=== PATIENT | male | born 1995 | race African-American/Black ===

== ENCOUNTER 2017-07-01 08:43 | Emergency (ER) | payer SELFPAY ==
[~2017-07-01] VITALS: Ht 170.2 cm; Wt 70.0 kg
[2017-07-01 08:54] VITALS: BP 145/83; PULSE 68; RESP 15; TEMP 98.9; O2SAT 99
== END 2017-07-01 10:43 | disposition left against medical advice (07) ==
LOC: NED 08:43
DX: R10.9 Unspecified abdominal pain (principal)
CPT/HCPCS: 99281

== ENCOUNTER 2018-01-21 18:23 | Inpatient (IN) ==
[2018-01-21 22:05] LABS: Baso % (Auto) 0.7 % (0.0-2.0); Eos # (Auto) 0.1 th/mm3 (0.0-0.4); Eos % (Auto) 2.1 % (0.0-4.0); Hematocrit 45.2 % (39.0-51.0); Hemoglobin 15.1 gm/dL (13.0-17.0); Lymph # (Auto) 2.3 th/mm3 (1.0-4.8); Lymph % (Auto) 34.6 % (9.0-44.0); Mean Corpuscular HGB Conc 33.3 % (32.0-36.0); Mean Corpuscular Hemoglobin 33.2 pg (27.0-34.0); Mean Corpuscular Volume 99.7 fL (80.0-100.0); Mono # (Auto) 0.6 th/mm3 (0.0-0.9); Mono % (Auto) 9.2 % (0.0-8.0); Neut # (Auto) 3.5 th/mm3 (1.8-7.7); Neut % (Auto) 53.4 % (16.0-70.0); Platelet Count 160 th/mm3 (150-450); Red Blood Count 4.54 mil/mm3 (4.50-5.90); White Blood Count 6.5 th/mm3 (4.0-11.0)
[2018-01-21 22:08] LABS: Amphetamine Screen,Urine Neg (Neg); Barbiturate Screen,Urine Neg (Neg); Cannabinoid Screen,Urine Pos (Neg); Cocaine Screen,Urine Neg (Neg)
[2018-01-21 22:14] LABS: Opiate Screen,Urine Neg (Neg)
[2018-01-21 22:14] LABS: Anion Gap 4 meq/L (5-15)
--- NOTE | 2018-01-21 22:23 | ED ---
HPI General Chief Complaint: Psychiatric Symptoms Stated Complaint: psych eval Time Seen by Provider: 01/21/18 21:29 Source: patient Mode of arrival: ambulatory Limitations: no limitations History of Present Illness HPI Narrative: Patient states that he has been stressed out about school recently and has been contemplating suicide for the past week. Has a old prescription for pain medications from a previous surgery that he is planning on taking. States that if the medication was not working he was going to jump off a bridge. Patient has never been medicated for depression in the past. MD complaint: Reports suicidal ideation and feels depressed Relieving factors: none Exacerbating factors: none Associated psychiatric symptoms: Reports depression and suicidal ideation Associated symptoms: Reports denies other symptoms Treatments prior to arrival: Reports none If self harm: has plan Related Data Home Medications Medication Instructions Recorded Confirmed No Known Home Medications 01/21/18 01/21/18 Allergies Allergy/AdvReac Type Severity Reaction Status Date / Time No Known Allergies Allergy Unverified 07/01/17 08:54 Review of Systems ROS: all other systems reviewed are negative [facility] Medical History Medical History Patient denies medical problems (Acute) Surgical History Surgical History History of appendectomy (Acute) Social History Social History Substance History: Active Abuse Second Hand Smoke Exposure: No Smoking Status: Never smoker How Often Do You Have a Drink Containing Alcohol: Never Recent Travel in [facility] within the Last 8 Weeks: No Recent Out of Country Travel within the Last 8 Weeks: No Substance Abuse Detail Marijuana: Substance Use Status: Active Route Used Substance Abuse: Inhalation Reason for Use: Get High Immunization History Tetanus Immunization: Unsure Exam Const General: cooperative, healthy appearing and anxious Nutritional Appearance: well nourished Orientation: alert, awake and oriented x3 HENMT Head: normocephalic and atraumatic Nose: no nasal discharge and no epistaxis Mouth: moist mucous membranes Eyes Conjunctivae: conjunctivae normal Sclera: normal sclerae Pupils: PERRL Neck Neck: trachea midline and no JVD Resp Effort & Inspection: no use of accessory muscles Auscultation: clear to auscultation bilaterally, no crackles, no rales and no wheezes Cardio Rate: regular rate Rhythm: regular rhythm Heart Sounds: no murmurs GI Inspection: non-distended Palpation: soft, no hepatosplenomegaly and nontender Skin General: no rashes or lesions noted and dry skin (warm) Trauma: no lacerations or abrasions Wounds: no wounds Neuro General: alert and awake Cranial Nerves: other Speech: speech normal Motor: no movement abnormalities noted Extrem General: normal to inspection, no clubbing, no cyanosis and no edema Psych Appearance: grossly normal and well kempt Speech and Movement: speech and movement normal Mood: congruent mood Affect: normal affect Judgment: judgment good Course Initial Documented Vital Signs Temperature 99.1 F 01/21/18 18:36 Pulse Rate 60 01/21/18 18:36 Respiratory Rate 20 01/21/18 18:36 Blood Pressure 135/93 H 01/21/18 18:36 Pulse Oximetry 99 01/21/18 18:36 Last Documented Vital Signs Temperature 97.6 F 01/24/18 05:07 Pulse Rate 48 L 01/24/18 05:07 Respiratory Rate 16 01/24/18 05:07 Blood Pressure 120/65 01/24/18 05:07 Pulse Oximetry 100 01/24/18 05:07 Medical Decision Making MDM Narrative Medical decision making narrative: Patient states that he has been depressed and suicidal for the last week. Has a plan to take an entire bottle of pain medication or jump off a bridge. Told his family who now want him evaluated by a psychiatrist. [facility] Patient will get labs and toxicology screen Patient is resting comfortably in bed. Labs are negative and toxicology came back with positive THC Patient medically cleared at 0007 patient seen by psychiatric nurse who thinks patient needs to be admitted into hospital after evaluation by psychiatrist. If patient tries to leave AMA we will ruiz act patient Medical Screen Exam Complete: Yes Emergency Medical Condition: Yes Differential Diagnosis Differential Diagnosis: Suicidal ideation, depression, manic bipolar, anxiety, malingering Lab Data Lab results reviewed: Yes I reviewed the patient's lab results. Result diagrams: 01/21/18 21:36 01/23/18 09:25 Lab Results 01/21/18 01/21/18 01/21/18 Range/Units 21:30 21:36 21:36 WBC 6.5 (4.0-11.0) th/mm3 RBC 4.54 (4.50-5.90) mil/mm3 Hgb 15.1 (13.0-17.0) gm/dL Hct 45.2 (39.0-51.0) % MCV 99.7 (80.0-100.0) fL MCH 33.2 (27.0-34.0) pg MCHC 33.3 (32.0-36.0) % RDW 13.0 (11.6-17.2) % Plt Count 160 (150-450) th/mm3 MPV 9.0 (7.0-11.0) fL Neut % (Auto) 53.4 (16.0-70.0) % Lymph % (Auto) 34.6 (9.0-44.0) % [place] % (Auto) 9.2 H (0.0-8.0) % Eos % (Auto) 2.1 (0.0-4.0) % Baso % (Auto) 0.7 (0.0-2.0) % Neut # (Auto) 3.5 (1.8-7.7) th/mm3 Lymph # (Auto) 2.3 (1.0-4.8) th/mm3 [place] # (Auto) 0.6 (0.0-0.9) th/mm3 Eos # (Auto) 0.1 (0.0-0.4) th/mm3 Baso # (Auto) 0.0 (0.0-0.2) th/mm3 WBC Differential . Differential Comment Auto diff final Sodium 141 (136-145) meq/L Potassium 4.0 (3.5-5.1) meq/L Chloride 107 (98-107) meq/L Carbon Dioxide 30.1 (21.0-32.0) meq/L Anion Gap 4 L (5-15) meq/L BUN 11 (7-18) mg/dL Creatinine 1.10 (0.60-1.30) mg/dL Estimated GFR Greater than 89 (>89) mL/min Random Glucose 85 (74-106) mg/dL Hemoglobin A1c (4.3-6.0) % Calcium 9.4 (8.5-10.1) mg/dL Total Bilirubin 1.5 H (0.2-1.0) mg/dL AST 18 (15-39) U/L ALT 16 (9-52) U/L Alkaline Phosphatase 60 (45-117) U/L Total Protein 9.0 H (6.4-8.2) g/dL Albumin 4.9 (3.4-5.0) g/dL Triglycerides (42-150) mg/dL Cholesterol (120-200) mg/dL LDL Cholesterol, Calc (0-99) mg/dL HDL Cholesterol (40.0-60.0) mg/dL Cholesterol/HDL Ratio Ratio Salicylates (2.8-20.0) mg/dL Urine Opiates Screen Neg (Neg) Acetaminophen Less than 2.0 L (10.0-30.0) mcg/mL Ur Barbiturates Screen Neg (Neg) Ur Amphetamines Screen Neg (Neg) U Benzodiazepines Scrn Neg (Neg) Urine Cocaine Screen Neg (Neg) U Cannabinoids Screen Pos H (Neg) Serum Alcohol Less than 3 (0-5) mg/dL 01/21/18 01/23/18 01/23/18 Range/Units 21:36 09:25 09:25 WBC (4.0-11.0) th/mm3 RBC (4.50-5.90) mil/mm3 Hgb (13.0-17.0) gm/dL Hct (39.0-51.0) % MCV (80.0-100.0) fL MCH (27.0-34.0) pg MCHC (32.0-36.0) % RDW (11.6-17.2) % Plt Count (150-450) th/mm3 MPV (7.0-11.0) fL Neut % (Auto) (16.0-70.0) % Lymph % (Auto) (9.0-44.0) % [place] % (Auto) (0.0-8.0) % Eos % (Auto) (0.0-4.0) % Baso % (Auto) (0.0-2.0) % Neut # (Auto) (1.8-7.7) th/mm3 Lymph # (Auto) (1.0-4.8) th/mm3 [place] # (Auto) (0.0-0.9) th/mm3 Eos # (Auto) (0.0-0.4) th/mm3 Baso # (Auto) (0.0-0.2) th/mm3 WBC Differential Differential Comment Sodium 139 (136-145) meq/L Potassium 4.0 (3.5-5.1) meq/L Chloride 103 (98-107) meq/L Carbon Dioxide 30.7 (21.0-32.0) meq/L Anion Gap 5 (5-15) meq/L BUN 11 (7-18) mg/dL Creatinine 1.19 (0.60-1.30) mg/dL Estimated GFR Greater than 89 (>89) mL/min Random Glucose 62 L (74-106) mg/dL Hemoglobin A1c 5.4 (4.3-6.0) % Calcium 9.4 (8.5-10.1) mg/dL Total Bilirubin (0.2-1.0) mg/dL AST (15-39) U/L ALT (9-52) U/L Alkaline Phosphatase (45-117) U/L Total Protein (6.4-8.2) g/dL Albumin (3.4-5.0) g/dL Triglycerides 71 (42-150) mg/dL Cholesterol 130 (120-200) mg/dL LDL Cholesterol, Calc 63 (0-99) mg/dL HDL Cholesterol 52.6 (40.0-60.0) mg/dL Cholesterol/HDL Ratio 2.47 Ratio Salicylates Less than 1.7 L (2.8-20.0) mg/dL Urine Opiates Screen (Neg) Acetaminophen (10.0-30.0) mcg/mL Ur Barbiturates Screen (Neg) Ur Amphetamines Screen (Neg) U Benzodiazepines Scrn (Neg) Urine Cocaine Screen (Neg) U Cannabinoids Screen (Neg) Serum Alcohol (0-5) mg/dL Discharge Plan Discharge Disposition Patient Disposition: 30 Still Patient Discharge Condition Condition: Stable Discharge Details Diagnosis: Suicidal ideation Physicians Team ED Provider: Marium Machado ED Midlevel Provider: Emily Anand Primary Care Provider: Primary Care Dominga Melgoza Attending Provider: Arpit Vázquez Status ED Status: Left Department Discharge Information Discharge Date/Time: 01/22/18 11:45
[2018-01-21 22:30] LABS: Alanine Aminotransferase 16 U/L (9-52); Albumin 4.9 g/dL (3.4-5.0); Alkaline Phosphatase 60 U/L (45-117); Aspartate Aminotransferase 18 U/L (15-39); Blood Urea Nitrogen 11 mg/dL (7-18); Calcium 9.4 mg/dL (8.5-10.1); Carbon Dioxide 30.1 meq/L (21.0-32.0); Chloride 107 meq/L (98-107); Glomerular Filtration Rate Greater Than 89 mL/min (>89); Glucose,Random 85 mg/dL (74-106); Sodium 141 meq/L (136-145)
[2018-01-22] MEDS ORDERED: Aluminum/Magnesium/Simethacone Susp 30 ML UDC PO PRN (10:33)
[2018-01-22] MEDS ORDERED: Bisacodyl 10 MG Supp RECTAL PRN (10:33)
--- NOTE | 2018-01-22 11:02 | P.HPPSY ---
Provisional Diagnosis Admission Date: January 21, 2018 18:23 [facility] I.: Adjustment disorder with depressed mood, R/O major depressive disorder, R/O substance-induced mood disorder Competence Certification of Person's Competence To Provide Express and Informed Consent I have personally examined Johnny Hoskins JR, a person being served at [facility] on, January 22, 2018 1049. Express and informed consent means consent voluntarily given in writing, by a competent person, after sufficient explanation and disclosure of the subject matter involved to enable the person to make a knowing and willful decision without any element of force, fraud, deceit, duress, or other form of constraint or coercion. This person is 18 years of age or older, is not now known to be incompetent to consent to treatment with a guardian advocate, and does not have a health care surrogate or proxy currently making medical treatment decisions. I have found this person to be one of the following: [x] Competent to provide express and informed consent, as defined above, for voluntary admission to this facility and is competent to provide express and informed consent for treatment. He/she has the consistent capacity to make well reasoned, willful, and knowing decisions concerning his or her medical or mental health treatment. The person fully and consistently understands the purpose of the admission for examination/placement and is fully capable of personally exercising all rights assured [place] Incompetent to provide express and informed consent to voluntary admission, and this is incompetent to provide express and informed consent to treatment. The person must be transferred to involuntary status and a petition for a guardian advocate filed with the Circuit Court. [] Refusing to provide express and informed consent to voluntary admission but is competent to provide express and informed consent for treatment. The person must be discharged or transferred to involuntary status. Form shall be completed within 24 hours of a person's arrival at the receiving facility and filed in the clinical record of each person: 1. Admitted on a voluntary basis 2. Permitted to provide express and informed consent to his/her own treatment 3. Allowed to transfer from involuntary to voluntary status 4. Prior to permitting a person to consent to his or her own treatment after having been previously found incompetent to consent to treatment. History of Present Illness Capacity: Has capacity History of Present Illness: The patient is a 22-year-old -[place] man, domiciled with his parents in [place], college student, he has a girlfriend, employed, without no previous psychiatric hospitalizations, cannabis use disorder, no previous suicide attempts, no significant medical history, who was brought voluntarily by his parents to have a psychiatric evaluation. He states that he has been stressed out about school recently and has been contemplating suicide for the past week. Has a old prescription for pain medications from a previous surgery that he is planning on taking. States that if the medication was not working he was going to jump off a bridge. Patient has never been medicated for depression in the past. He reports that he cannot understand the reason he feels depressed. He says that he feels now, but in the morning he can is starting feeling that everything is terrible around him, the bad news really gets through him, he has started seeing the world in a very pessimistic way and he cannot control the feelings of wanting to and disappear. Yesterday, he says, he was doing absolutely fine, he had no recent to be depressed, but all of the sudden he started feeling desperate, hopeless, helpless, worthless, with a strong need to commit suicide. The patient denies visual and auditory hallucinations. During my evaluation the patient is logical, coherent and relevant. There is no elicited paranoia, delusions of reference, loosening of associations, yolanda. The patient is fully oriented x3, without no fluctuation of consciousness, no attention deficit, no gross cognitive impairment present. During his stay in the ER he has been usually calm, cooperative, no agitation, no aggressive behavior reported. However, as per nurse report, the patient yesterday was asked to the nurse in charge if it was okay to hear voices inside his head., Even though he denies this today. Collateral information from his stepmotherOhma, , was obtained. She adds that yesterday patient's family became very concerned when he started to cry unconsolably for no apparent reason. She says that this is out of character for him. Nobody could really understood what was happening, not even his girlfriend, but he was saying over and over that he wanted to commit suicide and his plan was to overdose with pain medication, and if pain medication did not work he would jump off a bridge. She denies any kind of odd behavior lately, isolation, self neglecting behavior. 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, Review of Systems All other systems reviewed negative except as stated in HPI Psychiatric: Reports hopelessness, Reports irritability PMFSH - History History Provided By: Patient - Medical History Medical History: Medical History (Last Reviewed 01/22/18 @ 00:01 by Emily Anand) Patient denies medical problems - Surgical History Surgical History: Surgical History (Last Reviewed 01/22/18 @ 00:01 by Emily Anand) History of appendectomy - Tobacco History Second Hand Smoke Exposure: Yes Smoking Status: Never smoker - Alcohol History How Often Do You Have a Drink Containing Alcohol: Never - Substance Use History Substance History: Active Abuse - Substance Use Type Marijuana Status: Active Route Used: Inhalation Reason for Use: Get High - Travel History Recent Travel in the [place] Within the Last 8 Weeks: No Recent Travel Out of the Country Within the Last 8 Weeks: No - Immunization History Tetanus Immunization: Unsure Medications and Allergies Active Medications: Active Medications Al Hydrox/Mg Hydrox/Simethicone (Mag-Al Plus Susp Liq) 30 ml PO Q6H PRN PRN Reason: DYSPEPSIA Al Hydroxide/Mg Hydroxide (Milk Of Magnesia Liq) 30 ml PO Q12H PRN PRN Reason: Mild Constipation Bisacodyl (Dulcolax Supp) 10 mg RECTAL DAILY PRN PRN Reason: SEVERE CONSITIPATION Lactulose (Lactulose Liq) 30 ml PO DAILY PRN PRN Reason: SEVERE CONSITIPATION Senna/Docusate Sodium (Elizabeth-Colace) 1 tab PO BID ARIN Sennosides (Senokot) 17.2 mg PO Q12H PRN PRN Reason: Moderate Constipation Allergies Allergy/AdvReac Type Severity Reaction Status Date / Time No Known Allergies Allergy Unverified 07/01/17 08:54 Home Medications Medication Instructions Recorded Confirmed Type No Known Home Medications 01/21/18 01/21/18 History Results - Labs CBC & Chem 7: 01/21/18 21:36 01/21/18 21:36 Labs: Laboratory Results - last 24 hr 01/21/18 01/21/18 01/21/18 21:30 21:36 21:36 WBC 6.5 RBC 4.54 Hgb 15.1 Hct 45.2 MCV 99.7 MCH 33.2 MCHC 33.3 RDW 13.0 Plt Count 160 MPV 9.0 Neut % (Auto) 53.4 Lymph % (Auto) 34.6 Harrison % (Auto) 9.2 H Eos % (Auto) 2.1 Baso % (Auto) 0.7 Neut # (Auto) 3.5 Lymph # (Auto) 2.3 Harrison # (Auto) 0.6 Eos # (Auto) 0.1 Baso # (Auto) 0.0 WBC Differential . Differential Comment Auto diff final Sodium 141 Potassium 4.0 Chloride 107 Carbon Dioxide 30.1 Anion Gap 4 L BUN 11 Creatinine 1.10 Estimated GFR Greater than 89 Random Glucose 85 Calcium 9.4 Total Bilirubin 1.5 H AST 18 ALT 16 Alkaline Phosphatase 60 Total Protein 9.0 H Albumin 4.9 Salicylates Urine Opiates Screen Neg Acetaminophen Less than 2.0 L Ur Barbiturates Screen Neg Ur Amphetamines Screen Neg U Benzodiazepines Scrn Neg Urine Cocaine Screen Neg U Cannabinoids Screen Pos H Serum Alcohol Less than 3 01/21/18 21:36 WBC RBC Hgb Hct MCV MCH MCHC RDW Plt Count MPV Neut % (Auto) Lymph % (Auto) Harrison % (Auto) Eos % (Auto) Baso % (Auto) Neut # (Auto) Lymph # (Auto) Harrison # (Auto) Eos # (Auto) Baso # (Auto) WBC Differential Differential Comment Sodium Potassium Chloride Carbon Dioxide Anion Gap BUN Creatinine Estimated GFR Random Glucose Calcium Total Bilirubin AST ALT Alkaline Phosphatase Total Protein Albumin Salicylates Less than 1.7 L Urine Opiates Screen Acetaminophen Ur Barbiturates Screen Ur Amphetamines Screen U Benzodiazepines Scrn Urine Cocaine Screen U Cannabinoids Screen Serum Alcohol Exam Vital signs: Vital Signs 01/21/18 18:36 01/22/18 03:00 Temperature 99.1 F Pulse Rate 60 55 L Respiratory Rate 20 16 Blood Pressure 135/93 H 124/64 Pulse Oximetry 99 99 Intake & Output 01/21/18 01/22/18 01/22/18 18:59 06:59 18:59 Weight 65.771 kg Narrative: No tremors, no EPS, no withdrawal, no psychomotor agitation or retardation, no catatonia - Constitutional no acute distress - Routine HEENT Exam Head: Present: normocephalic, atraumatic Eye: Present: EOMI, PERRL ENT: Present: mucous membranes moist Mental Status Examination Appearance: Appropriate Consciousness: Alert Orientation: x4 Motor Activity: Normal gait Speech: Unremarkable Language: Adequate Fund of Knowledge: Adequate Attention and Concentration: Adequate Memory: Unremarkable Mood: Appropriate Affect: Appropriate Thought Process & Associations: Intact Thought Content: Appropriate Hallucination Type: None Delusion Type: None Suicidal Ideation: Yes Suicidal Plan: No Suicidal Intention: No Homicidal Ideation: No Homicidal Plan: No Homicidal Intention: No Insight: Fair Judgment: Impulsive Assessment and Plan - Assessment (1) Adjustment disorder with depressed mood Code(s): F43.21 - Adjustment disorder with depressed mood Status: Acute - Plan Plan: On my psychiatric evaluation today I find a patient that is calm, cooperative, logical, coherent and relevant. The patient reports that yesterday he felt all of the sudden very depressed and was contemplated to commit suicide by overdosing or by jumping off a bridge, he is denying to feel like that at this moment. He reports that yesterday without no recent he felt very hopeless, helpless, worthless, and with that continues persistent suicidal ideation with a plan of taking his meds recently prescribed for appendicitis "and, if this did not work I would jump off a bridge". Patient says that he was very determined to do this, and this was the reason he is poor with stepmother and girlfriend. He cannot identify any acute stressor at this moment. His stepmother and girlfriend, both, clarified that they were concerned about this patient's behavior, because he was crying inconsolably and this is out of character from him. During my evaluation the patient is at times distant and superficial, but I cannot perceive any psychotic symptoms. However, yesterday, as per nursing charge, the patient was asking if he was okay to hear voices in his head, but today he denies this. At this point is quite unclear to me if the etiology of presentation is secondary to an adjustment kind of emotion, and mood disorder or even to psychosis. The patient is going to be admitted voluntarily for longitudinal observation and to potentially start psychotropics. At this point I am not starting any medication, I am just observing. But, Prozac 10 mg and Abilify 5 mg could be a possibility. Transfer to 2600. Case discussed with nursing staff. Justification for Continued Inpatient Stay: To be admitted in psychiatry
[2018-01-22] MEDS: Senna/Docusate Sodium 8.6/50 MG Tablet PO SCH (20:25)
[2018-01-23] MEDS: Senna/Docusate Sodium 8.6/50 MG Tablet PO SCH ×2 (08:23→20:08)
[2018-01-23 11:07] LABS: Anion Gap 5 meq/L (5-15); Blood Urea Nitrogen 11 mg/dL (7-18); Calcium 9.4 mg/dL (8.5-10.1); Carbon Dioxide 30.7 meq/L (21.0-32.0); Chloride 103 meq/L (98-107); Glomerular Filtration Rate Greater Than 89 mL/min (>89); Glucose,Random 62 mg/dL (74-106); Sodium 139 meq/L (136-145)
[2018-01-23 11:09] LABS: Cholesterol 130 mg/dL (120-200); Triglycerides 71 mg/dL (42-150)
[2018-01-23 11:11] LABS: Chol/HDL Ratio 2.47 Ratio; HDL Cholesterol 52.6 mg/dL (40.0-60.0); LDL Cholesterol,Calculated 63 mg/dL (0-99)
--- NOTE | 2018-01-23 11:42 | P.PNPSY ---
Subjective Remarks: Reviewed electronic medical record and discussed patient with staff. Patient in common area and met with him in the hallway. He states that he is a college student and under alot of stress. He states he is not suicidal and feeling alot better. He has a supportive significant other. I shared with him that [facility] has a counselor and that he can request counseling through his [facility]. He is eager to return to school. Review of Systems All other systems reviewed negative except as stated in HPI Mental Status Examination Appearance: Appropriate Consciousness: Alert Orientation: x4 Motor Activity: Normal gait Speech: Unremarkable Language: Adequate Fund of Knowledge: Adequate Attention and Concentration: Adequate Memory: Unremarkable Mood: Appropriate Affect: Appropriate Thought Process & Associations: Intact Thought Content: Appropriate Hallucination Type: None Delusion Type: None Suicidal Ideation: No Suicidal Plan: No Suicidal Intention: No Homicidal Ideation: No Homicidal Plan: No Homicidal Intention: No Insight: Adequate Judgment: Adequate Assessment and Plan - Assessment (1) Adjustment disorder with depressed mood Code(s): F43.21 - Adjustment disorder with depressed mood Status: Acute - Plan Plan: Continue current treatment plan. Justification for Continued Inpatient Stay: Moving patient to a less restrictive environment may result in his decompensation.
[2018-01-23 13:03] LABS: Hemoglobin A1c 5.4 % (4.3-6.0)
--- NOTE | 2018-01-24 13:55 | P.DSPSY ---
Psychiatry Discharge Summary Inpatient Psychiatric care?: Yes Advance Directives: No Mental Health Advance Directive: No Health Care Proxy: No - Admission Admission Date: January 22, 2018 10:44 - Admission Diagnosis (1) Adjustment disorder with depressed mood Code(s): F43.21 - Adjustment disorder with depressed mood Brief History: The patient is a 22-year-old -[place] man, domiciled with his parents in [place], college student, he has a girlfriend, employed, without no previous psychiatric hospitalizations, cannabis use disorder, no previous suicide attempts, no significant medical history, who was brought voluntarily by his parents to have a psychiatric evaluation. He states that he has been stressed out about school recently and has been contemplating suicide for the past week. Has a old prescription for pain medications from a previous surgery that he is planning on taking. States that if the medication was not working he was going to jump off a bridge. Patient has never been medicated for depression in the past. He reports that he cannot understand the reason he feels depressed. He says that he feels now, but in the morning he can is starting feeling that everything is terrible around him, the bad news really gets through him, he has started seeing the world in a very pessimistic way and he cannot control the feelings of wanting to and disappear. Yesterday, he says, he was doing absolutely fine, he had no recent to be depressed, but all of the sudden he started feeling desperate, hopeless, helpless, worthless, with a strong need to commit suicide. The patient denies visual and auditory hallucinations. During my evaluation the patient is logical, coherent and relevant. There is no elicited paranoia, delusions of reference, loosening of associations, yolanda. The patient is fully oriented x3, without no fluctuation of consciousness, no attention deficit, no gross cognitive impairment present. During his stay in the ER he has been usually calm, cooperative, no agitation, no aggressive behavior reported. However, as per nurse report, the patient yesterday was asked to the nurse in charge if it was okay to hear voices inside his head., Even though he denies this today. Collateral information from his stepmotherOhma, , was obtained. She adds that yesterday patient's family became very concerned when he started to cry unconsolably for no apparent reason. She says that this is out of character for him. Nobody could really understood what was happening, not even his girlfriend, but he was saying over and over that he wanted to commit suicide and his plan was to overdose with pain medication, and if pain medication did not work he would jump off a bridge. She denies any kind of odd behavior lately, isolation, self neglecting behavior. 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 He has been having stress with his classes. He also gives a long somewhat convoluted history of depressive issues going back a number of years. There is a family history of mental health issues patient stating that his mother and sister are bipolar. He acknowledges a regular use of marijuana feels that it helps him with his anxiety at times but also makes him somewhat paranoid. He denies suicidality homicidality voices or visions. Denies other drug use. He is able contract to do no harm. He does state that he is adamantly opposed to medications at this time. There is a vague inference that he was looking for to prescribe him the green card for marijuana. I respectfully declined to support that. In any event at this time patient no longer meets criteria for inpatient psychiatric stay. I feel he may benefit from some routine regular counseling perhaps through [facility]. Thus patient to be discharged today to himself with no Rx by me strong referral to [facility] for counseling, absolute abstinence, referred to [facility] for treatment related to marijuana use - Discharge Discharge Date: 01/24/18 - Discharge Diagnosis (1) Adjustment disorder with depressed mood Code(s): F43.21 - Adjustment disorder with depressed mood Status: Acute Discharge Disposition: Home - Discharge Instructions Discharge Diet: Regular Diet Activities You Can Perform: Regular- No Restrictions - Discharge Time > 30 minutes Mental Status Examination Appearance: Appropriate Consciousness: Alert Orientation: x4 Motor Activity: Normal gait Speech: Unremarkable Language: Adequate Fund of Knowledge: Adequate Attention and Concentration: Adequate Memory: Unremarkable Mood: Appropriate Affect: Appropriate Thought Process & Associations: Intact Thought Content: Appropriate Hallucination Type: None Delusion Type: None Suicidal Ideation: No Suicidal Plan: No Suicidal Intention: No Homicidal Ideation: No Homicidal Plan: No Homicidal Intention: No Insight: Adequate Judgment: Adequate Discharge/Advance Care Plan - Results Vital Signs: Last Vital Signs Temp 97.6 F 01/24/18 05:07 Pulse 48 L 01/24/18 05:07 Resp 16 01/24/18 05:07 BP 120/65 01/24/18 05:07 Pulse Ox 100 01/24/18 05:07 Lab Results: Abnormal Lab Results 01/23/18 09:25 Hemoglobin A1c 5.4 Laboratory Results Hemoglobin A1c 5.4 % (4.3-6.0) 01/23/18 09:25 Triglycerides 71 mg/dL (42-150) 01/23/18 09:25 Cholesterol 130 mg/dL (120-200) 01/23/18 09:25 LDL Cholesterol, Calc 63 mg/dL (0-99) 01/23/18 09:25 HDL Cholesterol 52.6 mg/dL (40.0-60.0) 01/23/18 09:25 Summary of Procedures: None done Pending Results: None - Medications Number of antipsychotic medications at discharge: 0 - Discharge Care Plan Goals to Promote Your Health: * To prevent worsening of your condition and complications * To maintain your health at the optimal level Directions to Meet Your Goals: Take your medications as prescribed Follow your dietary instruction Follow activity as directed Keep your appointments as scheduled Take your immunizations and boosters as scheduled If your symptoms worsen call your PCP, if no PCP go to Urgent Care Center or Emergency Room For 12/10 questions related to your inpatient stay or results of tests pending at discharge, please contact Dr. Arpit Vázquez MD at Smoking is Dangerous to Your Health. Avoid second hand smoking
== END 2018-01-24 15:45 | disposition home or self-care (01) ==
LOC: NEPD 18:23 → NEDA 01-22 10:44 → H260 01-22 11:53
PROVIDERS: ADMIT Psychiatry & Neurology Psychiatry; ATTEND Psychiatry & Neurology Psychiatry